=== PATIENT | male | born 1950 | race Caucasian/White ===

== ENCOUNTER 2018-01-03 13:42 | Emergency (ER) | payer OTHER ==
[~2018-01-03] VITALS: Ht 175.3 cm; Wt 90.0 kg
[~2018-01-03 13:42] MED LIST: AUGMENTIN875TAB PO; AVELOX400 MG OR; BYSTOLIC5 MG PO; CRESTOR20 MG PO; ELIMITE5 % EX; FISH OIL1000 MG PO; FLOMAX0.4 M1 PO; HYDROXYZ HCL25 MG PO; LEVOTHROID137 MCG PO; LEVOTHYROXIN125 MC1; LEVOTHYROXIN125 MC1 PO; LEVOTHYROXIN125 MCG PO; LEVOTHYROXIN137 MCG PO; LIPITOR40 MG PO; LYSINE500 MG PO; MEDDOSEPAK OR; PANCOF EXP OR; SMZ-TMP DS1 TAB PO; STROMECTOL3 MG PO; SYNTHROID150 MCG PO; TAMSULOSIN0.4 MG PO; TRIAMCINOLON0.5 % EX; ZITHROMAX250 MG PO
[2018-01-03] MEDS ORDERED: NAPROSYN500 MG PO (14:56)
[2018-01-03 14:59] VITALS: BP 138/84
== END 2018-01-03 14:59 | disposition home or self-care (01) | DRG 552 ==
LOC: ED 13:42
DX: M54.5 Low back pain (principal); M47.816 Spondylosis without myelopathy or radiculopathy, lumbar region; S30.810A Abrasion of lower back and pelvis, initial encounter; W22.09XA Striking against other stationary object, initial encounter; Y93.F9 Activity, other caregiving; Y92.238 Other place in hospital as the place of occurrence of the external cause

== ENCOUNTER 2018-08-04 12:28 | Emergency (ER) | payer OTHER ==
[~2018-08-04] VITALS: Ht 175.3 cm; Wt 88.6 kg
[~2018-08-04 12:28] MED LIST changes: +NAPROSYN500 MG PO; +ZOSTAVAX IM
[2018-08-04 12:42] VITALS: BP 137/80
== END 2018-08-04 12:42 | disposition home or self-care (01) | DRG 951 ==
LOC: ED 12:28
DX: Z20.818 Contact with and (suspected) exposure to other bacterial communicable diseases (principal)

== ENCOUNTER → 2019-01-16 | Outpatient (REF) ==
[~2019-01-16] MED LIST changes: +MICARDIS40 MG PO; +OMEPRAZOLE20 MG PO
[2019-01-16 09:20] LABS: CHOLESTEROL HDL RATIO 3.4 (<4.4 (CALC))
== END | disposition home or self-care (01) | DRG 951 ==
LOC: LAB 07:46
PROVIDERS: ATTEND Family Medicine
DX: Z02.6 Encounter for examination for insurance purposes (principal)

== ENCOUNTER 2020-06-19 06:40 | Day surgery (SDC) | payer OTHER ==
[~2020-06-19 06:40] MED LIST changes: +CIALIS5 MG PO; +MELOXICAM7.5 MG PO; +OMEPRAZOLE10 MG PO
[2020-06-19 09:11] VITALS: BP 133/65
== END 2020-06-19 09:22 | disposition home or self-care (01) | DRG 392 ==
LOC: ENDO 06:40 → ORM 08:00 → ENDO 08:00
PROVIDERS: ATTEND Surgery
PROC: 0DB68ZX Excision of Stomach, Via Natural or Artificial Opening Endoscopic, Diagnostic (ICD-10-PCS; principal; 2020-06-19)
PROC: 0DJD8ZZ Inspection of Lower Intestinal Tract, Via Natural or Artificial Opening Endoscopic (ICD-10-PCS; 2020-06-19)
DX: K21.9 Gastro-esophageal reflux disease without esophagitis (principal); K31.7 Polyp of stomach and duodenum; Z12.11 Encounter for screening for malignant neoplasm of colon; K64.8 Other hemorrhoids; Z86.010 Personal history of colon polyps; Z79.899 Other long term (current) drug therapy; Z11.59 Encounter for screening for other viral diseases

== ENCOUNTER 2021-11-12 06:18 | Day surgery (SDC) | payer OTHER ==
[~2021-11-12] VITALS: Ht 175.3 cm; Wt 88.5 kg
[~2021-11-12 06:18] MED LIST changes: +[UNRECOGNIZED DRUG - CODE] PO
[2021-11-12 08:48] VITALS: BP 138/71
== END 2021-11-12 09:00 | disposition home or self-care (01) | DRG 726 ==
LOC: ORM 06:18
PROVIDERS: ATTEND Urology
PROC: 0VB03ZX Excision of Prostate, Percutaneous Approach, Diagnostic (ICD-10-PCS; principal; 2021-11-12)
DX: N40.1 Benign prostatic hyperplasia with lower urinary tract symptoms (principal); N13.8 Other obstructive and reflux uropathy; R97.20 Elevated prostate specific antigen [PSA]; I10 Essential (primary) hypertension; E03.9 Hypothyroidism, unspecified; E78.5 Hyperlipidemia, unspecified; K21.9 Gastro-esophageal reflux disease without esophagitis
CPT/HCPCS: J1956